=== PATIENT | male | born 1990 | race Caucasian/White ===

== ENCOUNTER 2023-06-09 11:24 | Emergency (ER) | payer BC, OTHER ==
[2023-06-09] MEDS: Bupivacaine 0.5% 10 ML SDV INJECT ONE (11:59)
[2023-06-09] MEDS: Witch Hazel Medicated Pads 40/Jar TOP PRN (12:13)
== END 2023-06-09 12:45 | disposition home or self-care (01) ==
LOC: JD.ED 11:24
DX: K64.5 Perianal venous thrombosis (principal); Z48.817 Encounter for surgical aftercare following surgery on the skin and subcutaneous tissue
CPT/HCPCS: 46083; 99282; J0665; 99283